=== PATIENT | female | born 1985 | race Caucasian/White ===

== ENCOUNTER 2020-01-21 10:05 | Inpatient (IN) | payer OTHER ==
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
[2020-01-21 10:24] VITALS: BMI 15.3
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
[2020-01-21] MEDS ORDERED: MAG HYDROX/AL HYDROX/SIMETH 30 ML UNIT-DOSE CUP PO PRN (10:54)
[2020-01-21] MEDS ORDERED: ACETAMINOPHEN 325 MG TABLET (FP) PO PRN (10:54)
[2020-01-21] MEDS ORDERED: MAGNESIUM CITRATE 300 ML BOTTLE PO PRN (10:54)
[2020-01-21] MEDS ORDERED: ONDANSETRON *ODT* 4 MG TABLET SL PRN (10:54)
[2020-01-21] MEDS ORDERED: BISMUTH SUBSALICYLATE 524 MG/30 ML UD PO PRN (10:54)
[2020-01-21] MEDS ORDERED: IBUPROFEN 400 MG TABLET (FP) PO PRN (10:54)
[2020-01-21] MEDS ORDERED: MAGNESIUM HYDROX 2400MG/30ML ORAL SUSPENSION 30 ML CUP PO PRN (10:54)
[2020-01-21] MEDS ORDERED: MENTHOL/PHENOL 1 EACH UD MM PRN (10:54)
[2020-01-21] MEDS: NICOTINE 7 MG/24 HOURS TOPICAL PATCH TD SCH (11:43)
[2020-01-21] MEDS: PRENATAL VITAMINS W/ FOLIC ACID TABLET (FP) PO SCH (11:44)
[2020-01-21] MEDS: chlordiazePOXIDE HCL 25 MG CAPSULE PO SCH ×3 (11:44→23:40)
[2020-01-21] MEDS: METHOCARBAMOL 500 MG TABLET PO PRN ×2 (11:50→18:39)
[2020-01-21] MEDS ORDERED: hydrOXYzine PAMOATE 25 MG CAPSULE (FP) PO SCH (14:00)
[2020-01-21] MEDS: hydrOXYzine PAMOATE 25 MG CAPSULE (FP) PO PRN ×2 (14:04→17:17)
[2020-01-21] MEDS: chlordiazePOXIDE HCL 25 MG CAPSULE PO PRN (14:34)
[2020-01-21 15:20] LABS: HEMATOCRIT 39.2 % (32.4-45.2); HEMOGLOBIN 12.9 GM/dL (10.7-15.3); MCH 34.6 pg (25.7-33.7); MCHC 32.9 g/dl (32.0-36.0); MEAN CELL VOLUME 105.2 fl (80-96); MEAN PLT VOLUME 7.4 fl (7.5-11.1); PLATELET COUNT 192 K/MM3 (134-434); RBC 3.73 M/mm3 (3.60-5.2); RDW 12.4 % (11.6-15.6); WHITE BLOOD COUNT 6.9 K/mm3 (4.0-10.0)
[2020-01-21 15:37] LABS: BLOOD UREA NITROGEN 4.4 mg/dL (7-18); CREATININE 0.5 mg/dL (0.55-1.3); POTASSIUM 3.9 mmol/L (3.5-5.1); TOT PROT 7.6 g/dl (6.4-8.2)
[2020-01-21 15:43] LABS: BILIRUBIN,TOTAL 0.3 mg/dL (0.2-1)
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
[2020-01-21] MEDS ORDERED: GABAPENTIN 300 MG CAPSULE PO SCH ×2 (17:34→22:00)
[2020-01-21] MEDS: GABAPENTIN 300 MG CAPSULE PO SCH (17:49)
[2020-01-21] MEDS: MELATONIN 5 MG TABLETS PO SCH (23:39)
[2020-01-21] MEDS: THIAMINE HCL 100 MG TABLET (FP) PO SCH (23:40)
[2020-01-22] MEDS ORDERED: chlordiazePOXIDE HCL 25 MG CAPSULE PO ONE (02:13)
--- NOTE | 2020-01-22 02:18 | PN ---
[facility] Progress Note Note: hospital return c/o shakes, sweats, anxiety, tremors and c.p. feels related to anxiety snd withdrawal sx's. denies numbness, sob, pain. Vital Signs Temperature 98.2 F 01/22/20 01:30 Pulse Rate 112 H 01/22/20 01:30 Respiratory Rate 18 01/22/20 01:30 Blood Pressure 143/107 H 01/22/20 01:30 O2 Sat by Pulse Oximetry (%) 96 01/22/20 01:30 a- anxiety , withdrawal sx's p- ekg-NORMAL SINUS RHYTHM PROLONGED QT NO PREVIOUS ECGS AVAILABLE librium stat for c/o worsening withdrawal sx's c/w librium taper continue to monitor closely
[2020-01-22] MEDS: chlordiazePOXIDE HCL 25 MG CAPSULE PO PRN (02:29)
[2020-01-22] MEDS: hydrOXYzine PAMOATE 25 MG CAPSULE (FP) PO PRN ×4 (02:29→23:56)
[2020-01-22] MEDS: ACETAMINOPHEN 325 MG TABLET (FP) PO PRN ×2 (02:29→17:45)
[2020-01-22] MEDS: GABAPENTIN 300 MG CAPSULE PO SCH ×3 (06:51→22:12)
[2020-01-22] MEDS: chlordiazePOXIDE HCL 25 MG CAPSULE PO SCH ×2 (06:51→10:16)
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
[2020-01-22] MEDS: METHOCARBAMOL 500 MG TABLET PO PRN (09:39)
[2020-01-22] MEDS: NICOTINE 7 MG/24 HOURS TOPICAL PATCH TD SCH (10:17)
--- NOTE | 2020-01-22 10:36 | EKG ---
Test Reason : Blood Pressure : / mmHG Vent. Rate : 083 BPM Atrial Rate : 083 BPM P-R Int : 132 ms QRS Dur : 078 ms QT Int : 406 ms P-R-T Axes : 051 059 054 degrees QTc Int : 477 ms NORMAL SINUS RHYTHM PROLONGED QT NO PREVIOUS ECGS AVAILABLE Confirmed by LYSSA TRINH MD ([id number]) on 01/22/2020 10:36:41 AM Referred By: JOSE Confirmed By:LYSSA TRINH MD
--- NOTE | 2020-01-22 13:10 | PN ---
S CIWA - CIWA Score Nausea/Vomitin Muscle Tremors: 3 Anxiety: 2 Agitation: 2 Paroxysmal Sweats: No Perspiration Orientation: 0-Oriented Tacttile Disturbances: 1-Very Mild Itch/Numbness Auditory Disturbances: 0-None Visual Disturbances: 0-None Headache: 1-Very Mild CIWA-Ar Total Score: 11 S Progress Note (SOAP) Subjective: alert,irritable,anxious,interrupted sleep,tremor,pain in the body Objective: 01/22/20 13:00 Vital Signs Temperature 98.2 F 01/22/20 08:37 Pulse Rate 16 L 01/22/20 08:37 Respiratory Rate 82 H 01/22/20 08:37 Blood Pressure 116/63 01/22/20 08:37 O2 Sat by Pulse Oximetry (%) 96 01/22/20 06:24 01/22/20 14:50 Laboratory Last Values WBC 6.9 K/mm3 (4.0-10.0) 01/21/20 11:20 RBC 3.73 M/mm3 (3.60-5.2) 01/21/20 11:20 Hgb 12.9 GM/dL (10.7-15.3) 01/21/20 11:20 Hct 39.2 % (32.4-45.2) 01/21/20 11:20 MCV 105.2 fl (80-96) H 01/21/20 11:20 MCH 34.6 pg (25.7-33.7) H 01/21/20 11:20 MCHC 32.9 g/dl (32.0-36.0) 01/21/20 11:20 RDW 12.4 % (11.6-15.6) 01/21/20 11:20 Plt Count 192 K/MM3 (134-434) 01/21/20 11:20 MPV 7.4 fl (7.5-11.1) L 01/21/20 11:20 Sodium 143 mmol/L (136-145) 01/21/20 11:20 Potassium 3.9 mmol/L (3.5-5.1) 01/21/20 11:20 Chloride 105 mmol/L (98-107) 01/21/20 11:20 Carbon Dioxide 32 mmol/L (21-32) 01/21/20 11:20 Anion Gap 6 MMOL/L (8-16) L 01/21/20 11:20 BUN 4.4 mg/dL (7-18) L 01/21/20 11:20 Creatinine 0.5 mg/dL (0.55-1.3) L 01/21/20 11:20 Est GFR (CKD-EPI)AfAm 145.33 01/21/20 11:20 Est GFR (CKD-EPI)NonAf 125.39 01/21/20 11:20 Random Glucose 100 mg/dL (74-106) 01/21/20 11:20 Calcium 9.0 mg/dL (8.5-10.1) 01/21/20 11:20 Total Bilirubin 0.3 mg/dL (0.2-1) 01/21/20 11:20 AST 214 U/L (15-37) H 01/21/20 11:20 ALT 122 U/L (13-61) H 01/21/20 11:20 Alkaline Phosphatase 71 U/L (45-117) 01/21/20 11:20 Total Protein 7.6 g/dl (6.4-8.2) 01/21/20 11:20 Albumin 4.0 g/dl (3.4-5.0) 01/21/20 11:20 Syphilis Serology Non-reactive (NONREACTIVE) 01/21/20 11:20 HIV Ag/Ab Combo Qual Negative (NEGATIVE) 01/21/20 11:20 Assessment: 01/22/20 14:51 withdrawal symptom Plan: continue detox librium regimen,repeat cmp,inr in am,for elevation of alt,ast
[2020-01-22] MEDS: PRENATAL VITAMINS W/ FOLIC ACID TABLET (FP) PO SCH (15:06)
--- NOTE | 2020-01-22 15:35 | PN ---
[facility] Progress Note Note: addendum regimen changed from librium to ativan due to elevated alt,ast
[2020-01-22] MEDS ORDERED: LORazepam 1 MG TABLET PO PRN (15:36)
[2020-01-22] MEDS: LORazepam 2 MG TABLET PO SCH ×2 (17:06→22:12)
[2020-01-22] MEDS: THIAMINE HCL 100 MG TABLET (FP) PO SCH (22:12)
[2020-01-22] MEDS: MELATONIN 5 MG TABLETS PO SCH (22:12)
[2020-01-23] MEDS ORDERED: chlordiazePOXIDE HCL 25 MG CAPSULE PO SCH (05:00)
[2020-01-23] MEDS: GABAPENTIN 300 MG CAPSULE PO SCH ×3 (05:57→22:17)
[2020-01-23] MEDS: LORazepam 2 MG TABLET PO SCH ×4 (05:57→22:17)
[2020-01-23 10:12] LABS: INR 0.97 (0.83-1.09); PROTHROMBIN TIME (PATIENT) 11.4 SEC (9.7-13.0)
[2020-01-23 10:19] LABS: SGOT/AST 67 U/L (15-37)
[2020-01-23 10:26] LABS: SGPT/ALT 77 U/L (13-61)
[2020-01-23] MEDS: NICOTINE 7 MG/24 HOURS TOPICAL PATCH TD SCH (10:28)
[2020-01-23] MEDS: PRENATAL VITAMINS W/ FOLIC ACID TABLET (FP) PO SCH (10:28)
[2020-01-23] MEDS: hydrOXYzine PAMOATE 25 MG CAPSULE (FP) PO PRN ×3 (15:14→23:46)
--- NOTE | 2020-01-23 16:48 | PN ---
[facility] CIWA - CIWA Score Nausea/Vomitin-No Nausea/No Vomiting Muscle Tremors: 2 Anxiety: 4-Mod. Anxious/Guarded Agitation: 1-Slight > Activity Paroxysmal Sweats: 2 Orientation: 0-Oriented Tacttile Disturbances: 0-None Auditory Disturbances: 0-None Visual Disturbances: 2-Mild Sensitivity Headache: 0-None Present CIWA-Ar Total Score: 11 [facility] Progress Note (SOAP) Subjective: Anxious, Fatigue, Sweating. Objective: Patient A & O X 3, Observed Ambulating on Detox Unit Unassisted. In No Acute Distress. 01/23/20 16:44 Vital Signs Temperature 98.4 F 01/23/20 12:40 Pulse Rate 82 01/23/20 12:40 Respiratory Rate 17 01/23/20 12:40 Blood Pressure 110/64 01/23/20 12:40 O2 Sat by Pulse Oximetry (%) 96 01/23/20 12:40 Laboratory Tests 01/21/20 01/21/20 01/21/20 11:20 11:20 11:20 WBC 6.9 RBC 3.73 Hgb 12.9 Hct 39.2 MCV 105.2 H MCH 34.6 H MCHC 32.9 RDW 12.4 Plt Count 192 MPV 7.4 L PT with INR INR Sodium 143 Potassium 3.9 Chloride 105 Carbon Dioxide 32 Anion Gap 6 L BUN 4.4 L Creatinine 0.5 L Est GFR (CKD-EPI)AfAm 145.33 Est GFR (CKD-EPI)NonAf 125.39 Random Glucose 100 Calcium 9.0 Total Bilirubin 0.3 AST 214 H ALT 122 H Alkaline Phosphatase 71 Total Protein 7.6 Albumin 4.0 Syphilis Serology Non-reactive COVID-19 (GARY) HIV Ag/Ab Combo Qual 01/21/20 01/21/20 01/23/20 11:20 11:30 07:30 WBC RBC Hgb Hct MCV MCH MCHC RDW Plt Count MPV PT with INR INR Sodium Potassium Chloride Carbon Dioxide Anion Gap BUN Creatinine Est GFR (CKD-EPI)AfAm Est GFR (CKD-EPI)NonAf Random Glucose Calcium Total Bilirubin AST 67 H ALT 77 H Alkaline Phosphatase Total Protein Albumin Syphilis Serology COVID-19 (GARY) Not detected HIV Ag/Ab Combo Qual Negative 01/23/20 01/23/20 07:30 07:40 WBC RBC Hgb Hct MCV MCH MCHC RDW Plt Count MPV PT with INR 11.40 INR 0.97 Sodium Potassium Chloride Carbon Dioxide Anion Gap BUN Creatinine Est GFR (CKD-EPI)AfAm Est GFR (CKD-EPI)NonAf Random Glucose Calcium Total Bilirubin AST ALT Cancelled Alkaline Phosphatase Total Protein Albumin Syphilis Serology COVID-19 (GARY) HIV Ag/Ab Combo Qual Lab Results noted. Results of Repeat AST and ALT noted. Significant reductions noted in both values in comparison to those noted on Detox Admission Laboratory assessment. 01/23/20 16:45 Assessment: 01/23/20 16:45 WITHDRAWAL SYMPTOMS. ELEVATED AST LEVEL. ELEVATED ALT LEVEL. 01/23/20 16:48 Plan: Continue Detox. Increase Daily Oral Water Intake.
[2020-01-23] MEDS: THIAMINE HCL 100 MG TABLET (FP) PO SCH (22:17)
[2020-01-23] MEDS: MELATONIN 5 MG TABLETS PO SCH (22:17)
[2020-01-23] MEDS: ACETAMINOPHEN 325 MG TABLET (FP) PO PRN (23:47)
[2020-01-24] MEDS ORDERED: chlordiazePOXIDE HCL 10 MG CAPSULE PO PRN
[2020-01-24] MEDS ORDERED: chlordiazePOXIDE HCL 10 MG CAPSULE PO SCH (05:00)
[2020-01-24] MEDS: GABAPENTIN 300 MG CAPSULE PO SCH ×3 (05:37→22:05)
[2020-01-24] MEDS: LORazepam 1 MG TABLET PO SCH ×4 (05:37→22:05)
[2020-01-24] MEDS: hydrOXYzine PAMOATE 25 MG CAPSULE (FP) PO PRN ×4 (07:16→23:19)
[2020-01-24] MEDS: NICOTINE 7 MG/24 HOURS TOPICAL PATCH TD SCH (10:52)
[2020-01-24] MEDS: NICOTINE POLACRILEX 2 MG GUM BUC PRN ×2 (10:52→13:05)
[2020-01-24] MEDS: PRENATAL VITAMINS W/ FOLIC ACID TABLET (FP) PO SCH (10:52)
--- NOTE | 2020-01-24 12:50 | PN ---
[facility] CIWA - CIWA Score Nausea/Vomitin-No Nausea/No Vomiting Muscle Tremors: 2 Anxiety: 3 Agitation: 3 Paroxysmal Sweats: 1-Minimal Palms Moist Orientation: 0-Oriented Tacttile Disturbances: 0-None Auditory Disturbances: 0-None Visual Disturbances: 0-None Headache: 0-None Present CIWA-Ar Total Score: 9 S Progress Note (SOAP) Subjective: Complaints of anxiety, sweats and shakes. Objective: 01/24/20 12:49 Vital Signs 01/24/20 01/24/20 05:24 08:50 Temperature 97.8 F 97 F L Pulse Rate 66 110 H Respiratory 16 16 Rate Blood Pressure 110/67 137/78 O2 Sat by Pulse 99 Oximetry (%) Laboratory Last Values WBC 6.9 K/mm3 (4.0-10.0) 01/21/20 11:20 RBC 3.73 M/mm3 (3.60-5.2) 01/21/20 11:20 Hgb 12.9 GM/dL (10.7-15.3) 01/21/20 11:20 Hct 39.2 % (32.4-45.2) 01/21/20 11:20 MCV 105.2 fl (80-96) H 01/21/20 11:20 MCH 34.6 pg (25.7-33.7) H 01/21/20 11:20 MCHC 32.9 g/dl (32.0-36.0) 01/21/20 11:20 RDW 12.4 % (11.6-15.6) 01/21/20 11:20 Plt Count 192 K/MM3 (134-434) 01/21/20 11:20 MPV 7.4 fl (7.5-11.1) L 01/21/20 11:20 PT with INR 11.40 SEC (9.7-13.0) 01/23/20 07:30 INR 0.97 (0.83-1.09) 01/23/20 07:30 Sodium 143 mmol/L (136-145) 01/21/20 11:20 Potassium 3.9 mmol/L (3.5-5.1) 01/21/20 11:20 Chloride 105 mmol/L (98-107) 01/21/20 11:20 Carbon Dioxide 32 mmol/L (21-32) 01/21/20 11:20 Anion Gap 6 MMOL/L (8-16) L 01/21/20 11:20 BUN 4.4 mg/dL (7-18) L 01/21/20 11:20 Creatinine 0.5 mg/dL (0.55-1.3) L 01/21/20 11:20 Est GFR (CKD-EPI)AfAm 145.33 01/21/20 11:20 Est GFR (CKD-EPI)NonAf 125.39 01/21/20 11:20 Random Glucose 100 mg/dL (74-106) 01/21/20 11:20 Calcium 9.0 mg/dL (8.5-10.1) 01/21/20 11:20 Total Bilirubin 0.3 mg/dL (0.2-1) 01/21/20 11:20 AST 67 U/L (15-37) H 01/23/20 07:30 ALT Cancelled 01/23/20 07:40 Alkaline Phosphatase 71 U/L (45-117) 01/21/20 11:20 Total Protein 7.6 g/dl (6.4-8.2) 01/21/20 11:20 Albumin 4.0 g/dl (3.4-5.0) 01/21/20 11:20 Syphilis Serology Non-reactive (NONREACTIVE) 01/21/20 11:20 COVID-19 (GARY) Not detected (Not Detected) 01/21/20 11:30 HIV Ag/Ab Combo Qual Negative (NEGATIVE) 01/21/20 11:20 Labs reviewed. Assessment: 01/24/20 12:49 Alert and oriented x3, in no acute respiratory distress Full ROM, skin warm to touch, ambulatory on unit without assistance. Mild withdrawal symptoms. Plan: Continue detox protocol.
[2020-01-24] MEDS: THIAMINE HCL 100 MG TABLET (FP) PO SCH (22:05)
[2020-01-24] MEDS: MELATONIN 5 MG TABLETS PO SCH (22:05)
[2020-01-25] MEDS ORDERED: LORazepam 0.5 MG TABLET PO PRN
[2020-01-25] MEDS: ACETAMINOPHEN 325 MG TABLET (FP) PO PRN (01:31)
[2020-01-25] MEDS: METHOCARBAMOL 500 MG TABLET PO PRN ×2 (01:32→11:16)
[2020-01-25] MEDS ORDERED: chlordiazePOXIDE HCL 10 MG CAPSULE PO SCH (05:00)
[2020-01-25] MEDS: LORazepam 0.5 MG TABLET PO SCH ×2 (06:26→10:03)
[2020-01-25] MEDS: GABAPENTIN 300 MG CAPSULE PO SCH (06:26)
[2020-01-25 09:10] VITALS: TEMP 97.5
[2020-01-25] MEDS: NICOTINE 7 MG/24 HOURS TOPICAL PATCH TD SCH (10:02)
[2020-01-25] MEDS: PRENATAL VITAMINS W/ FOLIC ACID TABLET (FP) PO SCH (10:03)
[2020-01-25] MEDS: hydrOXYzine PAMOATE 25 MG CAPSULE (FP) PO PRN (10:04)
[2020-01-25 14:05] VITALS: BP 91/68; PULSE 102
--- NOTE | 2020-01-25 14:12 | PN ---
[facility] CIWA - CIWA Score Nausea/Vomitin-No Nausea/No Vomiting Muscle Tremors: None Anxiety: 1-Mildly Anxious Agitation: 0-Normal Activity Paroxysmal Sweats: No Perspiration Orientation: 0-Oriented Tacttile Disturbances: 0-None Auditory Disturbances: 0-None Visual Disturbances: 0-None Headache: 0-None Present CIWA-Ar Total Score: 1 S Progress Note (SOAP) Subjective: alert,no complaint Objective: 01/25/20 14:11 Vital Signs Temperature 97.5 F L 01/25/20 14:05 Pulse Rate 102 H 01/25/20 14:05 Respiratory Rate 20 01/25/20 14:05 Blood Pressure 91/68 01/25/20 14:05 O2 Sat by Pulse Oximetry (%) 97 01/25/20 14:05 Assessment: 01/25/20 14:11 no withdrawal symptom Plan: stable for discharge today,follow up with after care program as arrangement
--- NOTE | 2020-01-25 14:12 | DS ---
[facility] Detox Discharge Summary Admission Date: 01/21/20 Discharge Date: 01/25/20 - History Present History: Alcohol Dependence Additional Comments: alert,oriented x 3 ambulation on the unit no difficulty on the unit no swelling of the leg stable for discharge today follow up with after care program as arrangement [facility] total time of discharge 35 minutes Pertinent Past History: brain aneurysm depression nicotine dependence - Physical Exam Results Vital Signs: Vital Signs Temperature 97.5 F L 01/25/20 14:05 Pulse Rate 102 H 01/25/20 14:05 Respiratory Rate 20 01/25/20 14:05 Blood Pressure 91/68 01/25/20 14:05 O2 Sat by Pulse Oximetry (%) 97 01/25/20 14:05 Pertinent Admission Physical Exam Findings: withdrawal sign and symptom Laboratory Last Values WBC 6.9 K/mm3 (4.0-10.0) 01/21/20 11:20 RBC 3.73 M/mm3 (3.60-5.2) 01/21/20 11:20 Hgb 12.9 GM/dL (10.7-15.3) 01/21/20 11:20 Hct 39.2 % (32.4-45.2) 01/21/20 11:20 MCV 105.2 fl (80-96) H 01/21/20 11:20 MCH 34.6 pg (25.7-33.7) H 01/21/20 11:20 MCHC 32.9 g/dl (32.0-36.0) 01/21/20 11:20 RDW 12.4 % (11.6-15.6) 01/21/20 11:20 Plt Count 192 K/MM3 (134-434) 01/21/20 11:20 MPV 7.4 fl (7.5-11.1) L 01/21/20 11:20 PT with INR 11.40 SEC (9.7-13.0) 01/23/20 07:30 INR 0.97 (0.83-1.09) 01/23/20 07:30 Sodium 143 mmol/L (136-145) 01/21/20 11:20 Potassium 3.9 mmol/L (3.5-5.1) 01/21/20 11:20 Chloride 105 mmol/L (98-107) 01/21/20 11:20 Carbon Dioxide 32 mmol/L (21-32) 01/21/20 11:20 Anion Gap 6 MMOL/L (8-16) L 01/21/20 11:20 BUN 4.4 mg/dL (7-18) L 01/21/20 11:20 Creatinine 0.5 mg/dL (0.55-1.3) L 01/21/20 11:20 Est GFR (CKD-EPI)AfAm 145.33 01/21/20 11:20 Est GFR (CKD-EPI)NonAf 125.39 01/21/20 11:20 Random Glucose 100 mg/dL (74-106) 01/21/20 11:20 Calcium 9.0 mg/dL (8.5-10.1) 01/21/20 11:20 Total Bilirubin 0.3 mg/dL (0.2-1) 01/21/20 11:20 AST 67 U/L (15-37) H 01/23/20 07:30 ALT Cancelled 01/23/20 07:40 Alkaline Phosphatase 71 U/L (45-117) 01/21/20 11:20 Total Protein 7.6 g/dl (6.4-8.2) 01/21/20 11:20 Albumin 4.0 g/dl (3.4-5.0) 01/21/20 11:20 Syphilis Serology Non-reactive (NONREACTIVE) 01/21/20 11:20 COVID-19 (GARY) Not detected (Not Detected) 01/21/20 11:30 HIV Ag/Ab Combo Qual Negative (NEGATIVE) 01/21/20 11:20 Vital Signs Temperature 97.5 F L 01/25/20 14:05 Pulse Rate 102 H 01/25/20 14:05 Respiratory Rate 20 01/25/20 14:05 Blood Pressure 91/68 01/25/20 14:05 O2 Sat by Pulse Oximetry (%) 97 01/25/20 14:05 - Treatment Hospital Course: Detox Protocol Followed, Detoxed Safely, Responded well, Discharged Condition Good Patient has Accepted a Rehab Referral to: declined - Medication Discharge Medications: Ambulatory Orders Gabapentin [Neurontin -] mg PO Q8H 01/21/20 - Diagnosis (1) Alcohol dependence with uncomplicated withdrawal Current Visit: Yes Status: Acute (2) Elevated alanine aminotransferase (ALT) level Current Visit: Yes Status: Acute (3) Elevated aspartate aminotransferase level Current Visit: Yes Status: Acute (4) Brain aneurysm Current Visit: Yes Status: Chronic (5) Nicotine dependence Current Visit: Yes Status: Chronic - AMA Did Patient Leave Against Medical Advice: No
[2020-01-26] MEDS ORDERED: chlordiazePOXIDE HCL 10 MG CAPSULE PO ONE (05:00)
[2020-01-26] MEDS ORDERED: LORazepam 0.5 MG TABLET PO ONE (05:00)
== END 2020-01-25 14:19 | disposition home or self-care (01) | DRG 775 ==
LOC: YASAS 10:05 → Y6N 10:42
PROVIDERS: ADMIT Allergy & Immunology; ATTEND Allergy & Immunology
PROC: HZ2ZZZZ Detoxification Services for Substance Abuse Treatment (ICD-10-PCS; principal; 2020-01-21)
DX: F10.230 Alcohol dependence with withdrawal, uncomplicated (principal); F17.210 Nicotine dependence, cigarettes, uncomplicated; F10.282 Alcohol dependence with alcohol-induced sleep disorder; F10.24 Alcohol dependence with alcohol-induced mood disorder; F41.9 Anxiety disorder, unspecified; I67.1 Cerebral aneurysm, nonruptured; G40.509 Epileptic seizures related to external causes, not intractable, without status epilepticus; R74.0 Nonspecific elevation of levels of transaminase and lactic acid dehydrogenase [LDH]; S40.021A Contusion of right upper arm, initial encounter; S80.12XA Contusion of left lower leg, initial encounter; S80.11XA Contusion of right lower leg, initial encounter; X58.XXXA Exposure to other specified factors, initial encounter; Y93.89 Activity, other specified; Y92.9 Unspecified place or not applicable; Y99.9 Unspecified external cause status; Z91.410 Personal history of adult physical and sexual abuse; Z56.0 Unemployment, unspecified
CPT/HCPCS: 36415; 80053; 81025; 84450; 84460; 85027; 85610; 86780; 87389; 93005; 93010; U0003

== ENCOUNTER 2020-01-21 19:40 | Emergency (ER) | payer OTHER ==
--- NOTE | 2020-01-21 19:42 | PDOC ---
Rapid Medical Evaluation Time Seen by Provider: 01/21/20 19:41 Medical Evaluation: Allergies Allergy/AdvReac Type Severity Reaction Status Date / Time No Known Allergies Allergy Verified 01/21/20 10:35 01/21/20 19:42 CC: toilet lodged in vagina ExaM: vss Plan: FT Discharge Disposition - Diagnosis Foreign body - Referrals - Patient Instructions - Post Discharge Activity
[2020-01-21 19:51] VITALS: BP 110/78; PULSE 103; TEMP 98.3; BMI 16.9
--- NOTE | 2020-01-21 20:20 | PDOC ---
History of Present Illness - General Chief Complaint: Foreign Body (FB) Stated Complaint: FOREIGN BODY Time Seen by Provider: 01/21/20 19:41 History Source: Patient Exam Limitations: No Limitations - History of Present Illness Initial Comments: 01/21/20 20:14 Patient is a 34-year-old female presents to the ED with complaint of a piece of toilet paper in her vagina. She states that she was at [facility] when she was having intercourse and states that she forgot she was using toilet paper as a pad. The patient states that she started her menses and did not have a tampon so she used toilet paper. After having intercourse she realized that she had toilet paper in her vagina and she was unable to get it out. The patient states she is leaving [facility] and does not want to go back secondary to the "incident". She does not want to elaborate on this incident. She has a history of alcoholism but denies other past medical history. Past History - Medical History Allergies/Adverse Reactions: Allergies Allergy/AdvReac Type Severity Reaction Status Date / Time No Known Allergies Allergy Verified 01/21/20 19:48 Home Medications: Ambulatory Orders Gabapentin [Neurontin -] mg PO Q8H 01/21/20 Asthma: No Cardiac Disorders: No COPD: No Diabetes: No GI Disorders: No Disorders: No HTN: No Kidney Stones: No Seizures: Yes (Pt states she had a seizure 07/2019) - Reproductive History Is Patient Now?: No PID: No - Psycho-Social/Smoking History Smoking History: Current some day smoker Have you smoked in the past 12 months: Yes Number of Cigarettes Smoked Daily: 10 Information on smoking cessation initiated: Yes 'Breaking Loose' booklet given: 01/21/20 - Substance Abuse Hx (Audit-C & DAST Scrn) How often the patient has a drink containing alcohol: 4 0r more times/wk Number of drinks the patient has on a typical day: 10 or more How often the patient has six or more drinks on one occasion: Daily or almost daily Score: In Men: 4 or > Positive; In Women: 3 or > Positive: 12 Screen Result (Pos requires Nsg. Audit-10AR): Positive In the last yr the pt used illegal drug/Rx for NonMed reason: No Score: Yes response is considered Positive: 0 Screen Result (Positive result requires Nsg. DAST-10): Negative Review of Systems - Review of Systems Comments:: 01/21/20 20:17 - Review of Systems Able to Perform ROS?: Yes Constitutional: No: Fever, Chills, Loss of Appetite, Night Sweats, Weakness HEENTM: No: Eye Pain, Vision changes, Ear Pain, Throat Pain, Throat Swelling, Mouth Pain, Difficulty Swallowing Respiratory: No: Cough, Shortness of Breath, Wheezing, Sputum Production Cardiac (ROS): No: Chest Pain, Chest Tightness, Palpitations, Irregular Heart Beat, Edema ABD/GI: No: Nausea, Vomiting, Abdominal Pain, Diarrhea : No Dysuria, No Hematuria, No Frequency, No Urgency, No Vaginal Discharge/Pain, positive: Foreign body in the vagina Musculoskeletal: No: Muscle Pain, Back Pain, Joint Pain, Muscle Weakness, Neck Pain Integumentary: No: Lesions, Rash Neurological: No: Headache, Numbness, Tingling, Weakness, Speech Difficulties *Physical Exam - Vital Signs Last Vital Signs Temp Pulse Resp BP Pulse Ox 98.3 F 103 H 18 110/78 96 01/21/20 19:41 01/21/20 19:41 01/21/20 19:41 01/21/20 19:41 01/21/20 19:41 - Physical Exam 01/21/20 20:17 - Physical Exam General Appearance: Nourished, Appropriately Dressed, No Distress HEENT: EOMI, Normal Voice, Hearing Grossly Normal Neck: Supple, No Lymphadenopathy (R), No Lymphadenopathy (L), No Rigidity, No Decreased range of motion Respiratory/Chest: Lungs Clear, Normal Breath Sounds. No Respiratory Distress, No Accessory Muscle Use Cardiovascular: Regular Rhythm, Regular Rate, S1, S2 Gastrointestinal/Abdominal: Normal Bowel Sounds, Soft. 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 The procedure was tolerated well. Musculoskeletal: Normal Inspection. No Decreased Range of Motion Extremity: Normal Capillary Refill, Normal Inspection Integumentary: Normal Color, Dry. No Rash Neurologic: visual and stock associate II-XII NML intact, Fully Oriented, Alert, Normal Mood/Affect, Normal Response There is mild hand tremors appreciated. There are no tongue fasciculations. The patient speaking in full and complete sentences. Medical Decision Making - Medical Decision Making 01/21/20 20:18 Assessment: Patient is a 34-year-old female with a foreign body in her vagina. The foreign body is toilet paper according to the patient. Plan: During speculum exam the foreign body was easily visualized and removed with a ring forceps without incident. The patient tolerated the procedure well. Patient states she is not going back to [facility] and would like to be discharged. I have discharged the patient. I will call [facility] to make them aware that the patient is not returning. The patient understands and agrees wit h this treatment plan and she is stable for discharge. The patient's vitals are stable at discharge. Discharge - Discharge Information Problems reviewed: Yes Clinical Impression/Diagnosis: Foreign body Condition: Stable Disposition: HOME - Follow up/Referral - Patient Discharge Instructions Patient Printed Discharge Instructions: DI for Foreign Body in Vagina-Adult Additional Instructions: A foreign body was removed from your vagina without incident. Be sure to follow-up with your primary doctor or your [employer]BLER for repeat evaluation. - Post Discharge Activity
== END 2020-01-21 20:30 | disposition home or self-care (01) ==
LOC: JERFT 19:40 → JER 19:40 → JERFT 20:30
DX: T19.2XXA Foreign body in vulva and vagina, initial encounter (principal)
CPT/HCPCS: 99282-25

== ENCOUNTER 2020-01-21 22:07 | Emergency (ER) | payer OTHER ==
[2020-01-21 22:15] VITALS: BP 123/89; PULSE 122; TEMP 98.4; BMI 16.9
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
== END 2020-01-22 00:57 | disposition home or self-care (01) ==
LOC: JER 22:07
DX: F10.239 Alcohol dependence with withdrawal, unspecified (principal)
CPT/HCPCS: 99282-25